=== PATIENT | female | born 1965 | race Caucasian/White ===

== ENCOUNTER 2021-01-20 20:57 | Emergency (ER) | payer OTHER ==
[2021-01-20] MEDS ORDERED: Lidocaine 2% with EPINEPHrine 1:100,000 20 ML MDV INFILT ONE (20:58)
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
[2021-01-20 21:26] VITALS: BP 147/83; PULSE 78
== END 2021-01-20 22:43 | disposition home or self-care (01) ==
LOC: FB.ED 20:57
DX: S81.012A Laceration without foreign body, left knee, initial encounter (principal); Z88.1 Allergy status to other antibiotic agents; V18.0XXA Pedal cycle driver injured in noncollision transport accident in nontraffic accident, initial encounter; Y93.I9 Activity, other involving external motion
CPT/HCPCS: 12002; 99282-25